=== PATIENT | female | born 1960 | race Native Hawaiian/Other Pacific Islander ===

== ENCOUNTER 2016-10-16 06:58 | Outpatient (CLI) | payer BC ==
[~2016-10-16 06:58] MED LIST: ACET5TAB36 PO; ADIPEX-P37.5 M1 OR; ALBU90AE13 INH; ALPR0.5T24 PO; AMOX875T8 PO; BENZ100C8 PO; BUPAP1 TAB OR; CIPRO XR500 MG PO; CORGARD80 MG OR; CYMBALTA30 MG OR; DOXY 100100 MG IV; DULO30CA OR; EDLUAR10 MG PO; EFFEXOR XR75 MG OR; FLUT0.05 NAS; LEVO0.1519 PO; LEVOTHYROXIN125 MCG OR; MICRO-K10 MEQ OR; MUPI2OIN2 TOP; PANT40TA PO; PRED20TA27 PO; SIMV20TA2 PO; SUCR1TAB35 PO; TORSEMIDE10 MG OR; [UNRECOGNIZED DRUG - OTHER] OR
== END 2016-10-16 07:58 | disposition home or self-care (01) ==
LOC: MAMMO 06:58
DX: Z12.31 Encounter for screening mammogram for malignant neoplasm of breast (principal)
CPT/HCPCS: G0202-TC

== ENCOUNTER 2017-01-06 13:47 | Emergency (ER) | payer BC ==
[~2017-01-06] VITALS: Ht 165.1 cm; Wt 95.3 kg
[2017-01-06] MEDS ORDERED: ZANAFLEX6 MG OR (14:17)
[2017-01-06] MEDS ORDERED: PROTONIX20 MG PO (14:18)
[2017-01-06 16:33] LABS: PLATELET COUNT 299 K/uL (152-353)
[2017-01-06 16:38] LABS: POTASSIUM 3.7 mmol/L (3.6-5.2); SODIUM 136 mmol/L (136-145)
[2017-01-06 18:20] VITALS: BP 122/90; TEMP 98
== END 2017-01-06 18:20 | disposition home or self-care (01) ==
LOC: ED 13:47
PROVIDERS: Emergency Medicine
DX: G43.909 Migraine, unspecified, not intractable, without status migrainosus (principal)
CPT/HCPCS: 36415; 80053; 81000; 85027; 93005; 96365; 96375; 96376; 99284; J1200; J1885; J2550

== ENCOUNTER 2017-09-23 02:07 | Emergency (ER) | payer BC ==
[~2017-09-23] VITALS: Ht 165.1 cm; Wt 93.0 kg
[~2017-09-23 02:07] MED LIST changes: +PROTONIX20 MG PO; +ZANAFLEX6 MG OR
[2017-09-23 05:37] VITALS: BP 165/83; TEMP 98.4
== END 2017-09-23 05:37 | disposition home or self-care (01) ==
LOC: ED 02:07
DX: G43.909 Migraine, unspecified, not intractable, without status migrainosus (principal); S30.0XXA Contusion of lower back and pelvis, initial encounter; W19.XXXA Unspecified fall, initial encounter
CPT/HCPCS: 36415; 82947; 96365; 96366; 99284; J1100; J1200; J1885; J2550; J3475

== ENCOUNTER 2018-01-24 14:08 | Outpatient (CLI) | payer BC ==
[2018-01-24] MEDS ORDERED: DEMADEX10 MG PO (15:19)
[2018-01-24] MEDS ORDERED: TIZA4TAB5 PO (15:20)
[2018-01-24] MEDS ORDERED: ALPR0.5T24 PO (16:07)
== END 2018-01-24 14:16 | disposition short-term general hospital (02) ==
LOC: AMB 14:08
DX: R41.82 Altered mental status, unspecified (principal)
CPT/HCPCS: A0425; A0427

== ENCOUNTER 2018-01-24 14:21 | Inpatient (IN) | payer BC ==
[2018-01-24] VITALS (16 sets, daily range): BP systolic 139–192; BP diastolic 57–124; TEMP 97.6–98; Ht 162.6 cm; Wt 93.9 kg
[~2018-01-24] VITALS: Ht 162.6 cm; Wt 93.9 kg
[2018-01-24 15:15] LABS: PLATELET COUNT 244 K/uL (152-353)
[2018-01-24] MEDS ORDERED: DEMADEX10 MG PO (15:19)
[2018-01-24 15:20] LABS: POTASSIUM 5.1 mmol/L (3.6-5.2); SODIUM 138 mmol/L (136-145)
[2018-01-24] MEDS ORDERED: TIZA4TAB5 PO (15:20)
[2018-01-24] MEDS ORDERED: ALPR0.5T24 PO (16:07)
[2018-01-25] VITALS (11 sets, daily range): BP systolic 139–176; BP diastolic 62–98; TEMP 97.6–98.1
[2018-01-25 07:02] LABS: POTASSIUM 4.5 mmol/L (3.6-5.2)
[2018-01-25 08:33] LABS: PLATELET COUNT 278 K/uL (152-353)
[2018-01-26] VITALS (8 sets, daily range): BP systolic 104–199; BP diastolic 63–101; TEMP 97.5–98.3
[2018-01-26 09:47] LABS: POTASSIUM 3.5 mmol/L (3.6-5.2)
[2018-01-26 09:52] LABS: PLATELET COUNT 234 K/uL (152-353)
[2018-01-27] VITALS: BP 113/63; TEMP 98
[2018-01-27 04:34] VITALS: BP 147/72; TEMP 98
[2018-01-27 07:30] VITALS: BP 164/75; TEMP 98
== END 2018-01-27 10:45 | disposition home or self-care (01) | DRG 918 ==
LOC: ED 14:21 → ICU 17:17 → MED/SURG 01-26 15:20
PROVIDERS: Family Medicine; ADMIT Internal Medicine
DX: T50.992A Poisoning by other drugs, medicaments and biological substances, intentional self-harm, initial encounter (principal); F33.2 Major depressive disorder, recurrent severe without psychotic features; Y92.89 Other specified places as the place of occurrence of the external cause; F43.10 Post-traumatic stress disorder, unspecified; I10 Essential (primary) hypertension; E78.4 Other hyperlipidemia; Z86.73 Personal history of transient ischemic attack (TIA), and cerebral infarction without residual deficits; E03.8 Other specified hypothyroidism; I12.9 Hypertensive chronic kidney disease with stage 1 through stage 4 chronic kidney disease, or unspecified chronic kidney disease; N18.3 Chronic kidney disease, stage 3 (moderate); M79.7 Fibromyalgia; I34.1 Nonrheumatic mitral (valve) prolapse; G47.30 Sleep apnea, unspecified; K27.9 Peptic ulcer, site unspecified, unspecified as acute or chronic, without hemorrhage or perforation; F41.8 Other specified anxiety disorders
CPT/HCPCS: 36415; 51702; 80048; 80053; 80307; 80320; 80329; 81000; 82550; 82607; 82746; 83735; 84439; 84443; 84484; 85027; 93005; 99283; J3411; J3490; L3908

== ENCOUNTER 2020-02-08 15:55 | Outpatient (CLI) | payer BC, OTHER ==
[~2020-02-08 15:55] MED LIST changes: +DEMADEX10 MG PO; +TIZA4TAB5 PO
== END 2020-02-08 20:44 | disposition home or self-care (01) ==
LOC: LAB 15:55
DX: Z20.828 Contact with and (suspected) exposure to other viral communicable diseases (principal)
CPT/HCPCS: 87635; U0002

== ENCOUNTER 2020-05-12 19:37 | Emergency (ER) | payer BC ==
[~2020-05-12] VITALS: Ht 165.1 cm; Wt 97.5 kg
[2020-05-12 22:02] LABS: POTASSIUM 4.2 mmol/L (3.6-5.2); SODIUM 145 mmol/L (136-145)
[2020-05-12 22:04] LABS: PLATELET COUNT 187 K/uL (152-353)
[2020-05-12 22:11] LABS: PARTIAL THROMBOPLASTIN TIME 24.1 SECONDS (24.5-33.6)
[2020-05-12 23:19] VITALS: BP 142/75; TEMP 97.9
== END 2020-05-12 23:27 | disposition home or self-care (01) ==
LOC: ED 19:37
PROVIDERS: Hospitalist
DX: J06.9 Acute upper respiratory infection, unspecified (principal); J02.9 Acute pharyngitis, unspecified; R05 Cough; U07.1 COVID-19; R06.02 Shortness of breath
CPT/HCPCS: 80053; 81000; 82550; 83880; 84484; 85027; 85610; 85730; 87502; 87635; 87651; 93005; 96374; 96376; 99284; J1100; J2405; U0003

== ENCOUNTER 2021-09-16 09:54 | Outpatient (CLI) | payer BC | END 2021-09-16 18:58 | disposition home or self-care (01) | LOC: MAMMO 09:54 | PROVIDERS: ATTEND Internal Medicine | DX: Z12.31 Encounter for screening mammogram for malignant neoplasm of breast (principal); Z13.820 Encounter for screening for osteoporosis; M85.88 Other specified disorders of bone density and structure, other site ==

== ENCOUNTER 2021-09-24 09:18 | Outpatient (CLI) | payer BC | END 2021-09-24 20:12 | disposition home or self-care (01) | LOC: US 09:18 | PROVIDERS: ATTEND Internal Medicine | DX: M79.89 Other specified soft tissue disorders (principal); R22.42 Localized swelling, mass and lump, left lower limb ==

== ENCOUNTER 2021-09-30 15:00 | Outpatient (CLI) | payer BC, OTHER | END 2021-09-30 18:54 | disposition home or self-care (01) | LOC: LAB 15:00 | PROVIDERS: ATTEND Internal Medicine | DX: R05.9 Cough, unspecified (principal); J98.8 Other specified respiratory disorders; J02.9 Acute pharyngitis, unspecified; Z20.822 Contact with and (suspected) exposure to COVID-19 | CPT/HCPCS: 87635; G2023; U0003 ==

== ENCOUNTER 2021-10-20 08:24 | Outpatient (CLI) | payer BC | END 2021-10-20 19:30 | disposition home or self-care (01) | LOC: MRI 08:24 | PROVIDERS: ATTEND Internal Medicine | DX: R22.42 Localized swelling, mass and lump, left lower limb (principal) | CPT/HCPCS: 36415; 82565; 84520; A9576 ==

== ENCOUNTER 2022-06-11 11:30 | Outpatient (CLI) | payer BC | END 2022-06-11 19:33 | disposition home or self-care (01) | LOC: US 11:30 | PROVIDERS: ATTEND Otolaryngology Otolaryngic Allergy | DX: R22.1 Localized swelling, mass and lump, neck (principal) ==

== ENCOUNTER 2023-04-13 07:00 | Emergency (ER) | payer BC ==
[~2023-04-13] VITALS: Ht 165.1 cm; Wt 90.7 kg
[2023-04-13 07:04] VITALS: BP 103/49; TEMP 97.3
== END 2023-04-13 08:15 | disposition home or self-care (01) ==
LOC: ED 07:00
PROC: 2W3RX1Z Immobilization of Left Lower Leg using Splint (ICD-10-PCS; principal; 2023-04-13)
DX: S82.892A Other fracture of left lower leg, initial encounter for closed fracture (principal); X58.XXXA Exposure to other specified factors, initial encounter
CPT/HCPCS: 99283